=== PATIENT | female | born 1960 | race Caucasian/White ===

== ENCOUNTER 2019-04-26 15:04 | Outpatient (RCR) | payer OTHER | END 2019-06-28 13:03 | disposition home or self-care (01) | LOC: WSOH 15:04 | DX: S60.222A Contusion of left hand, initial encounter (principal); S70.02XA Contusion of left hip, initial encounter; S80.02XA Contusion of left knee, initial encounter; M41.80 Other forms of scoliosis, site unspecified; Z90.710 Acquired absence of both cervix and uterus; Z96.662 Presence of left artificial ankle joint; Z98.890 Other specified postprocedural states; Z96.1 Presence of intraocular lens; Y99.0 Civilian activity done for income or pay ==